=== PATIENT | female | born 1970 | race Caucasian/White ===

== ENCOUNTER 2020-01-27 11:00 | Outpatient (RCR) | payer OTHER, SELFPAY ==
--- NOTE | 2019-11-29 10:36 | HP.OTEVAL_ITS ---
Patient's Visit Information MICHELE SCOTT is a 49 year old F, referred to Occupational Therapy by BRANDON VILLAFUERTE, with a diagnosis of left displaced fracture of radial head. Date of Evaluation: 11/26/19 Occupational Therapist: Melany Gordillo, LUCIO/Valentina, CHT - Subjective Subjective: This 49 year old female was seen for OT eval with dx of left radial head fx. pt states she had a fall on 2019. pt states she waited to go to ER following fall because she wasnt sure she broke it- pt states she went to clinic who placed her in soft cast- she was seen by Dr. Villafuerte who placed pt in soft elbow brace and ordered MRI- MRI confirmed mildly impacted intra-articular, nondisplaced fracture of the radial head- Mild sprain of the posterior band of the radial collateral and the radial annular ligament without descrete tear. osseous contusion with small 3mm osteochondral defect posterior margin of the capitellum tiny bone fragments likely in the posterior lateral gutter. pt was placed in elbow brace on November 18 with wrist brace to limit pts rotation of her forearm and allow for healing of radial head. 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 Pt will demo an increase in lateral and tripod pinch by 2# to increase pts independent with opening baggies, containers at PLOF by D/C. Goal:: Pt will demo an increase in forearm supination by 60* or greater to increase pts ind. With ADls and IADLS by d/c. pt will demo a increase in elbow to 140 flex and 0 extension to increase pts ind. with ADls and IADls by d/c Goal:: Pt will report pain no greater than 1/10 with use of affected hand with BADLs and IADLs by d/c. Goal:: pt will report no tingling with left elbow ROM by d/c - Rehabilitation General Assessment: Pt currently 6 weeks from fx- mildly impacted intra- articular, nondisplaced fracture of the radial head- Mild sprain of the posterior band of the radial collateral and the radial annular ligament without descrete tear. osseous contusion with small 3mm osteochondral defect posterior margin of the capitellum tiny bone fragments likely in the posterior lateral gutter. pt was placed in elbow brace on November 18 with wrist brace to limit pts rotation of her forearm and allow for healing of radial head. Pt limited with elbow and forearm ROM and strength limiting pts ind. with ADls and IADLs. has currently progressed pt to AROM ex to gain return of her functional ability- pt would benefit from skilled OT services 1-2 x week for 6 weeks. Today pt was ed. on elbow, wrist ROM ex and therapist will progress pt with forearm ROM as sahil. pt was given handout and demo understanding and agree to POC. Rehabilitation Potential: Good - Anticipated Interventions Anticipated Interventions: A/AAROM/PROM, Strengthening, Modalities - Visit Plan Frequency: 1x/Week Duration: 6 Weeks TEXT: Thank you for the opportunity to evaluate your patient. For Medicare and Medicare HMO plans, please review the plan of care and approve it. It will need to be FAXED BACK to us at [phone] for Medicare purposes. Please let me know if there are questions or concerns regarding this plan of care. Physician Signature: Date:
--- NOTE | 2019-12-27 17:53 | OTREVAL_ITS ---
BRANDON BENJAMIN, It has been my pleasure to treat MICHELE SCOTT over the last 3 visits for left displaced fracture of radial head. Please see the progress note below for an update on the occupational therapy plan of care! Subjective: pt arrives to session with elbow brace and wrist brace on- pts 3rd visit following eval on 11/26/19. pt continues to have increase use of left UE with ADLs and IADLS at this time. pt states she is only wearing brace when out of home and while sleeping. Objective/Function: left elbow -20/140. left forearm 65 supination pronation WNL. as pt will be 6 weeks after placement of anti forearm sup/pron brace therapy will intiate Light PRE and decrease use of brace at 6 weeks. Pt is progressing well no pain with current ROM and light daily tasks. will wait for approval to cont with PRE as pt sahil. from Plan Frequency: 2x /Week Duration: 3 Weeks Plan: cont to progress pt as able- will wait for order to begin PRE. 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 Pt will demo an increase in lateral and tripod pinch by 2# to increase pts independent with opening baggies, containers at PLOF by D/C. Goal:: Pt will demo an increase in forearm supination by 60* or greater to increase pts ind. With ADls and IADLS by d/c. pt will demo a increase in elbow to 140 flex and 0 extension to increase pts ind. with ADls and IADls by d/c Goal:: Pt will report pain no greater than 1/10 with use of affected hand with BADLs and IADLs by d/c. Goal:: pt will report no tingling with left elbow ROM by d/c Anticipated Interventions Anticipated Interventions: A/AAROM/PROM, Strengthening, Modalities Please do not hesitate to contact me at [phone] by phone or Fax: if you have questions or concerns regarding this new plan of care! Sincerely, Melany Gordillo, OTR/L, CHT
--- NOTE | 2020-05-03 15:38 | HP.OTDCSUM ---
It has been my pleasure to treat MICHELE SCOTT under orders from BRANDON BENJAMIN, for the diagnosis of left displaced fracture of radial head for a total of 12 visit(s). Please see the following information for a summary of their discharge status. % Improvement: 95 Objective/Function: left elbow ROM -25/140. right elbow ROM -5/140. left asset protection agent strength 55# right asset protection agent strength is 70#. left lateral pinch 13#. left tripod pinch 12# Patient Goals: Regain Mobility, Use Hand/Wrist/Arm Normally Again Goal:: PT will demo an increase in asset protection agent strength by 20# to increase independent with basic occupations of daily living to return pt to PLOF by D/C. Pt will demo an increase in lateral and tripod pinch by 2# to increase pts independent with opening baggies, containers at PLOF by D/C. Goal:: Pt will demo an increase in forearm supination by 60* or greater to increase pts ind. With ADls and IADLS by d/c. pt will demo a increase in elbow to 140 flex and 0 extension to increase pts ind. with ADls and IADls by d/c Goal:: Pt will report pain no greater than 1/10 with use of affected hand with BADLs and IADLs by d/c. Goal:: pt will report no tingling with left elbow ROM by d/c Plan: D/C If there are questions or concerns regarding this patient's occupational therapy, please fell free to call me at [phone]. Thank you for the referral of this patient. Sincerely, Melany Gordillo, OTR/L, CHT
== END 2020-01-27 19:00 | disposition home or self-care (01) ==
LOC: OT 11:00
DX: S52.122D Displaced fracture of head of left radius, subsequent encounter for closed fracture with routine healing (principal)
CPT/HCPCS: 97035; 97110; 97166; 97530